=== PATIENT | male | born 1970 | race Caucasian/White ===

== ENCOUNTER 2024-07-01 20:28 | Emergency (ER) | payer OTHER, SELFPAY ==
[2024-07-01 20:29] VITALS: BP 169/116; PULSE 114; RESP 16; TEMP 36.6; O2SAT 98; BMI 29.8
--- NOTE | 2024-07-01 20:32 | EKG12_ITS ---
Test Reason : CP Blood Pressure : */* mmHG Vent. Rate : 76 BPM Atrial Rate : 76 BPM P-R Int : 156 ms QRS Dur : 94 ms QT Int : 378 ms P-R-T Axes : 54 26 40 degrees QTcB Int : 425 ms Normal sinus rhythm with sinus arrhythmia Normal ECG No previous ECGs available Confirmed by JAKE SIMPSON, HOWARD ([id number]), editorial cartoonist FELICIANO MONTERO ([id number]) on 07/03/2024 9:37:51 AM Referred By: Confirmed By: HOWARD JOSEPH MD
--- NOTE | 2024-07-01 21:00 | RAD_ITS ---
EXAM: XR CHEST, 1 VIEW CLINICAL INDICATION: chest pain TECHNIQUE: Frontal view of the chest. This report was created using [employer] report generation technology. COMPARISON: None. FINDINGS: LUNGS AND PLEURAL SPACES: No significant abnormality. No consolidation or edema. No pneumothorax. No effusion. HEART: No significant abnormality. Cardiac silhouette not enlarged. MEDIASTINUM: Central airways and mediastinal contour are unremarkable. BONES/JOINTS: No significant abnormality. SOFT TISSUES: No significant abnormality. RAD/Chest 1 View (Portable) IMPRESSION: No radiographic evidence of acute cardiopulmonary disease. Electronically Signed: Clive Escobar DO at 21:28 EST ,
[2024-07-01 21:05] LABS: Absolute Lymphocyte Count 3.19 X10^3/uL (0.83-4.51); Absolute Neutrophil Count 4.5 X10^3/uL (2.0-7.7); Basophil# 0.06 X10^3/uL; Basophil% 0.7 % (0-1); Eosinophil# 0.19 X10^3/uL; Eosinophils% 2.1 % (0-5); Hemoglobin 16.5 g/dL (13.0-16.5); Lymphocyte # 3.19 X10^3/ul (0.83-4.51); Mean Corp Hgb Conc 35.1 g/dL (32-36); Mean Corpuscular Hgb 30.8 pg (27.0-32.0); Mean Corpuscular Volume 87.9 fL (80-94); Mean Platelet Vol. 8.8 fl (6.2-12.0); Monocyte# 0.89 X10^3/uL; NRBC Flagged by Analyzer 0 % (0-5); Neutrophil # 4.49 X10^3/uL (2.7-7.7); Neutrophil % 50.6 % (47-70); Platelet Count 285 K/mm3 (150-450); RBC Distribution Width CV 12.3 % (11.6-14.6); RBC Distribution Width SD 39.8 fl (35.1-43.9); Red Blood Count 5.35 M/mm3 (4.6-6.2); White Blood Count 8.9 K/mm3 (4.4-11.0)
[2024-07-01 21:24] LABS: Anion Gap 3 (5-15); BUN 14 mg/dL (7-18); BUN/Creat Ratio 13.1 RATIO (10-20); Calcium,Total 9.5 mg/dL (8.5-10.1); Chloride 106 mmol/L (98-107); Creatinine, Serum 1.07 mg/dL (0.70-1.30); EST Glomerular Filtration Rate 77 mL/min (>60); Est Glom Filt Rate - Afr Amer 93 mL/min (>60); Estimated Creatinine Clearance 93.12 ml/min; Glucose 101 mg/dL (74-106); Sodium Level 138 mmol/L (136-145); Troponin-I HS (w/2H Reflex) 6 pg/mL (3.0-78.0)
[2024-07-01 21:28] VITALS: BP 176/109; PULSE 72; RESP 18; O2SAT 98
--- NOTE | 2024-07-01 21:30 | EX.ED.DYSGE1 ---
HPI History of Present Illness Chief Complaint: Hypertension Narrative Narrative: 54-year-old male past medical history of hypertension, quit smoking 4 to 5 days ago presents with elevation of his blood pressure. States he may have had chest pain sometime last week, he had a cough that was more of a smoker's cough as well. He is concerned because he used to take amlodipine and valsartan for his blood pressure. His blood pressure Fluctuating. He was doing well after he stopped smoking and his blood pressure was under control in the 140's. However, this evening he states his blood pressure was as high as 181/111. Was not really symptomatic with that with headache or chest pain. He may have had right-sided neck pain that he thinks is from a lymph node. That started last week as well. He was concerned because his blood pressure was elevated and he had stopped taking his medication. PFSH PFSH Allergy/AdvReac Type Severity Reaction Status Date / Time No Known Allergies Allergy Verified 07/01/24 20:28 Social History Smoking Status: Former smoker ROS ROS ED ROS Narrative Constitutional: No fever, no chills. HEENT: No sore throat. Last week began with right-sided neck pain. No loss of vision. No rhinorrhea. Cardiovascular: Last week chest pain. No palpitations. No pedal edema. Respiratory: No cough currently, no shortness of breath. Abdominal: No abdominal pain. No nausea. No vomiting. Genitourinary: No dysuria. No hematuria. Musculoskeletal: No myalgias. No arthralgias. Neurologic: No headaches. No dizziness. No lightheadedness. Skin: No rash. No change in color. Psychiatric: No depression. Mild anxiety regarding pressure. EXAM Physical Exam Narrative Exam Narrative: Afebrile. Vital signs noted. HEENT: Normocephalic. Atraumatic. PERRL, EOMI. Neck soft and supple. Questionable enlarged lymph node right cervical chain. No point tenderness or step off. Cardiovascular: Regular rate and rhythm. No murmurs, rubs, or gallops appreciated. Respiratory: No tachypnea. Lungs clear to auscultation bilaterally. Gastrointestinal: Abdomen soft, nontender, with normoactive bowel sounds. No rebound or guarding. Neurological: Awake. Alert. Nonfocal, nonlateralizing. Skin: No rash. Normal color. No pallor. Musculoskeletal: No pedal edema. Full range of motion extremities. Const Vital Signs: 07/01/24 20:29 07/01/24 20:32 07/01/24 21:19 Temperature 98 F Temperature Source Oral Pulse Rate 114 H Respiratory Rate 16 Respiratory Effort Normal Blood Pressure 169/116 H Blood Pressure Mean 133 Pulse Ox 98 Oxygen Delivery Method Room Air Room Air 07/01/24 21:28 07/01/24 22:00 07/01/24 23:00 Temperature Temperature Source Pulse Rate 72 72 83 Respiratory Rate 18 16 18 Respiratory Effort Blood Pressure 176/109 H 143/106 H 151/101 H Blood Pressure Mean 131 118 117 Pulse Ox 98 93 98 Oxygen Delivery Method Room Air Room Air Room Air MDM MDM MDM Narrative Medical decision making narrative: Differential diagnosis includes hypertensive urgency versus emergency versus labile blood pressure versus whitecoat syndrome. Patient had reported elevated blood pressure this evening. In triage it was 169/116, however upon my examination it had come down to the 140s systolic with slightly elevated diastolic. I encouraged the patient to continue not smoking. Additionally, he was told that he should take his medications for his elevated blood pressure. In order to look for and/or in damage, EKG and laboratory work was obtained. EKG obtained interpreted by myself independently as normal sinus rhythm with sinus arrhythmia at 76 bpm without ectopy except sinus arrhythmia or acute ST changes. No STEMI. Chest x-ray in 1 view interpreted by myself independently shows no evidence of pneumothorax or pneumonia. I reviewed the radiology report which confirms my independent interpretation. Initial laboratory work obtained and reviewed. He has normal white count of 8.9 with hemoglobin 16.5, hematocrit 47.0, platelet count 285. BMP is grossly unremarkable. Initial high-sensitivity troponin 6. Given that he had chest pain and right-sided neck pain, second troponin will be obtained to help rule out ACS. Initially he was tachycardic, but now has a normal heart rate. I think this is more anxiety regarding his blood pressure as he states whenever he goes to his provider, blood pressure is elevated and he experiences anxiety. Upon repeat examination, his blood pressure is below 120 systolic. His second troponin returned at 7 for a delta troponin of 1 in acceptable for discharge. He feels improved. He was told to keep a log of his blood pressures, take his medication as previously directed, and follow-up with his primary care provider. Return instructions to the emergency department were reviewed. Disposition is discharged home in stable condition. History & Record Review Discussion w/independent historian: Patient Lab Data Attestation: I reviewed the patient's lab results. Labs: Laboratory Results - last 24 hr 07/01/24 07/01/24 20:59 23:12 WBC 8.9 RBC 5.35 Hgb 16.5 Hct 47.0 MCV 87.9 MCH 30.8 MCHC 35.1 RDW Std Deviation 39.8 RDW Coeff of Peace 12.3 Plt Count 285 MPV 8.8 Immature Gran % (Auto) 0.600 Neut % (Auto) 50.6 Lymph % (Auto) 36.0 [place] % (Auto) 10.0 Eos % (Auto) 2.1 Baso % (Auto) 0.7 Absolute Neuts (auto) 4.5 Absolute Lymphs (auto) 3.19 Nucleated RBC % 0 Sodium 138 Potassium 4.0 Chloride 106 Carbon Dioxide 29.0 Anion Gap 3 L BUN 14 Creatinine 1.07 Estim Creat Clear Calc 93.12 Est GFR (MDRD) Af Amer 93 Est GFR (MDRD) Non-Af 77 BUN/Creatinine Ratio 13.1 Glucose 101 Calcium 9.5 Troponin I High Sens 6 7 Radiography Diagnostic Testing: Clinical Impression(s) from Imaging Studies Chest X-Ray 07/01/24 21:00 IMPRESSION: No radiographic evidence of acute cardiopulmonary disease. Electronically Signed: Clive Deyvi Escobar DO at 21:28 EST , Discharge Plan Triage Chief Complaint: Hypertension Other Complaint: Chest Pain Other, Pain/Inj ED Provider: Chris Negron Dx/Rx/DC Orders Clinical Impression: Labile blood pressure, Chest pain, Hypertension Instructions: ED Chest Pain, Uncertain Cause, ED High Blood Pressure Hypertension Primary Care Provider: Micky Salinas NP Referrals: Micky Salinas [employer] P[employer] DEVELOPER, [employer] P[employer] DEVELOPER-C [Primary Care Provider] - 1-2 Days if not improving Activity Restrictions/Additional Instructions: Take your antihypertensives as previously directed. Follow-up with your primary care provider. Return with consistently elevated blood pressure, new or worsening symptoms. Print Language: Norwegian Disposition Disposition: Home, Self Care
[2024-07-01 22:00] VITALS: BP 143/106; PULSE 72; RESP 16; O2SAT 93
[2024-07-01 23:00] VITALS: BP 151/101; PULSE 83; RESP 18; O2SAT 98
[2024-07-01 23:01] LABS: Reflex Troponin-HS? (from REC) Y
[2024-07-01 23:33] LABS: Troponin-I HS 7 pg/mL (3.0-78.0)
[2024-07-01 23:52] VITALS: BP 121/97; PULSE 79; RESP 16; TEMP 36.6; O2SAT 98
== END 2024-07-01 23:53 | disposition home or self-care (01) ==
PROVIDERS: Emergency Provider Emergency Medicine; PCP Nurse Practitioner Family; Visit Provider Emergency Medicine
DX: R07.9 Chest pain, unspecified (principal); J41.0 Simple chronic bronchitis; I10 Essential (primary) hypertension; Z87.891 Personal history of nicotine dependence
CPT/HCPCS: 71045; 80048; 84484; 85025; 93005; 99285; A4216